=== PATIENT | male | born 1935 | race Caucasian/White ===

== ENCOUNTER 2022-03-20 14:54 | Emergency (ER) | payer OTHER ==
[~2022-03-20] VITALS: Ht 154.9 cm; Wt 76.2 kg
[2022-03-20 15:00] VITALS: BP 183/77
--- NOTE | 2022-03-20 15:10 | NUR ---
melissad called to triage for nihss
--- NOTE | 2022-03-20 15:29 | NUR ---
86YO MALE PT C/O R ARM NUMBING XTODAY. REPORTS SUDDEN ONSET WHILE ATTEMPTING TO TAKE OFF SHIRT -LOSS OF SENSATION. DENIES PREVIOUS S/S, N/V/D, CHEST PAIN, SOB, FEVER OR CHILLS. PT AAOX4, AMB W/ STEADY GAIT. NUZHAT EQUAL MOTOR/STRENGTH. ON SALES ASSISTANTS AND SALESPERSONS HX:DEFIB, CA ALLERGIES: CODEINE
--- NOTE | 2022-03-20 15:53 | NUR ---
Paola loera in [facility] - 03/20/22 at 1614 by PHSEP PT TAKEN TO CT VIA DK
--- NOTE | 2022-03-20 15:53 | NUR ---
PT TAKEN TO CT VIA WHEELCHAIR
--- NOTE | 2022-03-20 16:11 | NUR ---
PT BROUGHT BACK VIA WHEELCHAIR
--- NOTE | 2022-03-20 17:23 | NUR ---
Patient discharged with v/s stable. Written and verbal after care instructions FOR PARESTHESIA given and explained. Patient verbalized understanding. Ambulatory with steady gait. All questions addressed prior to discharge. Advised to follow up with PMD.
== END 2022-03-20 17:23 | disposition home or self-care (01) ==
LOC: MED 14:54
DX: R20.2 Paresthesia of skin (principal); Z88.5 Allergy status to narcotic agent
CPT/HCPCS: 72040; 99283

== ENCOUNTER 2022-03-22 17:03 | Inpatient (IN) | payer OTHER ==
[~2022-03-22] VITALS: Ht 157.5 cm; Wt 75.7 kg
[2022-03-22 17:05] VITALS: BP 166/82
--- NOTE | 2022-03-22 17:15 | NUR ---
Dr. Coleman evaluating patient in triage room.
--- NOTE | 2022-03-22 17:17 | NUR ---
CODE BRAIN INITIATED
--- NOTE | 2022-03-22 17:20 | NUR ---
86 y/o M BIB son c/o 2 episodes of slurred speech and facial droop. Per son, patient seen here 2 days ago for RUE injury s/p taking off shirt and hearing a pop to his right shoulder. Patient seen at [facility] and discharged with negative XRAY findings. Per son, patient woke up this morning at approximately 0730 this morning noted with right sided facial droop, right arm weakness/numbness and slurred speech lasting 2 minutes in duration self-resolved. Son states at 4:50PM today, patient had episode of slurred speech, R facial droop, and RUE weakness/numbness lasting 8-10 minutes. Last seen normal 7AM today. Patient denies chest pain, SOB, vision changes, headache, dizziness, fever, chills. n/v/d, NIHSS 3: RUE ataxia FNF +1; RUE decreased sensation +1; right arm motor drift +1. Pt placed onto manager monitoring. Bed locked in lowest position, side rails x 1. PMH: [place] w/ CABG 2021, left upper chest defibrillator, HTN Meds: losartan, omperazole, Allergies: codeine Sx: CABG 2001; defibrillator placement left upper chest (2001)
--- NOTE | 2022-03-22 17:20 | NUR ---
PT TAKEN TO CT SCAN
--- NOTE | 2022-03-22 17:30 | NUR ---
BACK FROM CT SCAN
--- NOTE | 2022-03-22 17:43 | NUR ---
PER - TELE NEURO INITIATED - CONNECT ID [id number]
[2022-03-22 17:57] LABS: BASOPHILS % (AUTO) 0.3 % (0.0-2.0); EOSINOPHILS # (AUTO) 0.1 K/uL (0-0.4); EOSINOPHILS % (AUTO) 2.2 % (0.0-4.0); HEMATOCRIT 37.8 % (36-52); HEMOGLOBIN 12.4 g/dL (12.0-18.0); LYMPHOCYTES % (AUTO) 16.6 % (20.5-51.1); MEAN CORPUSCULAR HEMOGLOBIN 27 pg (27-31); MEAN CORPUSCULAR HGB CONC 33 g/dL (33-37); MEAN CORPUSCULAR VOLUME 80.9 fL (80-94); MONOCYTES % (AUTO) 15.6 % (1.7-9.3); NEUTROPHILS # (AUTO) 4.1 K/uL (1.8-7.7); NEUTROPHILS % (AUTO) 65.3 % (42.2-75.2); PLATELET COUNT (AUTO) 227 K/uL (140-450); RED BLOOD CELL COUNT(AUTO) 4.67 MIL/uL (4.20-6.10); RED CELL DISTRIBUTION WIDTH 16.6 % (11.6-13.7); WHITE BLOOD COUNT (AUTO) 6.2 K/uL (4.8-10.8)
--- NOTE | 2022-03-22 18:10 | NUR ---
Patient with neuro consultation at this time
[2022-03-22 18:18] LABS: ALBUMIN 3.9 g/dL (3.4-5.0); ANION GAP 11.9 (8-16); ASPARTATE AMINOTRANSFERASE 15 U/L (15-37); CARBON DIOXIDE 26.7 mmol/L (21-32); CHLORIDE 101 mmol/L (98-107); CREATININE 1.3 mg/dL (0.6-1.3); GLUCOSE 105 mg/dL (74-106); POTASSIUM 4.6 mmol/L (3.5-5.1); SODIUM SERUM 135 mmol/L (136-145); TOTAL BILIRUBIN 0.5 mg/dL (0.0-1.0); UREA NITROGEN, BLOOD 27 mg/dL (7-18)
--- NOTE | 2022-03-22 19:15 | NUR ---
Patient to CT by isaac
[2022-03-22 19:21] LABS: APPEARANCE,URINE CLEAR (CLEAR); BILIRUBIN,URINE NEGATIVE (NEGATIVE); BLOOD, URINE TRACE-I (NEGATIVE); COLOR,URINE YELLOW (YELLOW); LEUKOCYTE ESTERASE ,URINE NEGATIVE (NEGATIVE); NITRITE, URINE NEGATIVE (NEGATIVE); UGLUCOSE NEGATIVE (NEGATIVE)
--- NOTE | 2022-03-22 19:21 | NUR ---
Report and transfer of care endorsed to MICHAEL Abdul.
--- NOTE | 2022-03-22 19:30 | NUR ---
ASSUMED CARE OF PT AT THIS TIME. PT IN POSITION OF COMFORT. DENIES ANY PAIN OR NEEDS AT THIS TIME. UPDATED PT AND SON ON POC WITH FULL RETURNED VERBAL UNDERSTANDING. AWAITING ADMISSION
[2022-03-22 19:32] LABS: OTHER CASTS, URINE None Seen /LPF (None Seen); RBC,URINE 0-5 /HPF (0-5); WBC,URINE 0-5 /HPF (0-5)
--- NOTE | 2022-03-22 20:05 | NUR ---
PT MOVED TO ER BED 11
[2022-03-22] MEDS ORDERED: POTASSIUM CHLORIDE 10 MEQ TABER PO PRN (20:10)
[2022-03-22] MEDS ORDERED: ACETAMINOPHEN 325 MG TAB PO PRN (20:10)
[2022-03-22] MEDS ORDERED: KCL 20 MEQ/WATER INJ PREMIX 200 ML IV PRN (20:10)
[2022-03-22] MEDS ORDERED: MAGNESIUM OXIDE 400 MG TAB PO PRN (20:10)
[2022-03-22] MEDS ORDERED: MAG SULF 2000 MG/WATER PREMIX 50 ML IV PRN (20:10)
[2022-03-22] MEDS ORDERED: LOSA100T1 PO (21:16)
[2022-03-22] MEDS ORDERED: ASPI-1749 PO (21:16)
[2022-03-22] MEDS ORDERED: CARV25TA PO (21:16)
[2022-03-22] MEDS ORDERED: OMEP40EC24 PO (21:16)
--- NOTE | 2022-03-23 05:30 | NUR ---
PT MOVED TO ER BED 12
--- NOTE | 2022-03-23 07:15 | NUR ---
REPORT TO ARIANNA RODRIGUEZ
[2022-03-23 07:18] LABS: BASOPHILS % (AUTO) 0.4 % (0.0-2.0); EOSINOPHILS # (AUTO) 0.1 K/uL (0-0.4); EOSINOPHILS % (AUTO) 1.9 % (0.0-4.0); HEMATOCRIT 36.5 % (36-52); HEMOGLOBIN 11.7 g/dL (12.0-18.0); LYMPHOCYTES # (AUTO) 1.1 K/uL (2.0-11.5); LYMPHOCYTES % (AUTO) 16.5 % (20.5-51.1); MEAN CORPUSCULAR HEMOGLOBIN 26 pg (27-31); MEAN CORPUSCULAR HGB CONC 32 g/dL (33-37); MEAN CORPUSCULAR VOLUME 82.3 fL (80-94); MONOCYTES % (AUTO) 14.6 % (1.7-9.3); NEUTROPHILS # (AUTO) 4.4 K/uL (1.8-7.7); NEUTROPHILS % (AUTO) 66.6 % (42.2-75.2); PLATELET COUNT (AUTO) 201 K/uL (140-450); RED BLOOD CELL COUNT(AUTO) 4.43 MIL/uL (4.20-6.10); RED CELL DISTRIBUTION WIDTH 16.2 % (11.6-13.7); WHITE BLOOD COUNT (AUTO) 6.6 K/uL (4.8-10.8)
--- NOTE | 2022-03-23 07:30 | NUR ---
PATIENT PRESENTED TO ED LAST NIGHT WITH FACIAL NUMBNESS AND TINGLING . DENIES N/V/D; SKIN IS PINK/WARM/DRY; AAOX4 WITH EVEN AND STEADY GAIT; LUNGS CLEAR BL; HR EVEN AND REGULAR; PT DENIES ANY FEVER, CP, SOB, OR COUGH AT THIS TIME; PATIENT STATES PAIN OF 0/10 AT THIS TIME; VSS; PATIENT POSITIONED FOR COMFORT; HOB ELEVATED; BEDRAILS UP X2; BED DOWN.
--- NOTE | 2022-03-23 08:45 | NUR ---
Patient will be admitted to care of DR. LEGER. Admited to TELEMETRY. Will go to room 110 A. Belongings list completed. Report to MICHAEL COLON.
[2022-03-23] MEDS: ATORVASTATIN 20 MG TAB PO SCH (09:00)
[2022-03-23] MEDS: ASPIRIN 81 MG TAB.CHEW PO SCH (09:00)
[2022-03-23 09:27] LABS: ALBUMIN 3.6 g/dL (3.4-5.0); ANION GAP 14.4 (8-16); ASPARTATE AMINOTRANSFERASE 26 U/L (15-37); CARBON DIOXIDE 23.7 mmol/L (21-32); CHLORIDE 102 mmol/L (98-107); GLUCOSE 95 mg/dL (74-106); MAGNESIUM 1.8 mg/dL (1.8-2.4); POTASSIUM 4.1 mmol/L (3.5-5.1); SODIUM SERUM 136 mmol/L (136-145); TOTAL BILIRUBIN 0.7 mg/dL (0.0-1.0); UREA NITROGEN, BLOOD 24 mg/dL (7-18)
[2022-03-23 09:33] LABS: CREATININE 1.3 mg/dL (0.6-1.3)
--- NOTE | 2022-03-23 11:10 | NUR ---
DC PLANNING SW ATTEMPTED TO MEET WITH PT AT BEDSIDE TO COMPLETE ASSESSMENT HOWEVER, PT BEING SEEN BY PROVIDER (NE), THEREFORE SW OUTREACHED TO PTS SON, CHAO, TO GATHER COLLATERAL INFORMATION. CHAO REPORTS PT RESIDES IN A SINGLE STORY HOME WITH HIS AND TWO ADULT SONS, AT THE ADDRESS LISTED ON FILE. CHAO IDENTIFIES HIMSELF, AND ALYSHA WARE, PTS , PTS EMERGENCY CONTACTS. CHAO UNSURE IF PT HAS DPOA. PT IS REPORTED TO MEET WITH PCP DR FERGUSON REGULARLY, LAST VISIT 03/22/22. PT IS REPORTED TO BE MEDICATION COMPLIANT AND RECEIVES MEDICATION FROM [facility] [place], WHEN NEEDED. PT IS REPORTED TO BE INDEPENDENT IN ALL ACTIVITIES AND DENIES USE OF DME. CHAO DENIES PT HAS HX OF DIABETES, DIALYSIS, HH, SNF PLACEMENT. PT IS REPORTED TO HAVE ADEQUATE FOOD IN THE HOME AND ADEQUATE FRIEND AND FAMILY SUPPORT. CHAO REPORTS BEING CONCERNED THAT SW CONTACTED HIM TO VERIFY ALL INFORMATION ON FILE. KOKO ENSURED CHAO ALL PATIENTS ARE VISITED BY SW TO GATHER/COMPLETE ASSESSMENTS TO ENSURE ALL INFORMATION ON FILE IS CORRECT, PT HAS SAFE DC PLAN, ENSURE NO BARRIERS TO ADEQUATE MEDICAL CARE, AND TO PROVIDE FAMILIES WITH RESOURCES IF NEEDED. CHAO VERBALIZED UNDERSTANDING. SW INQUIRED ON ADDITIONAL QUESTIONS AND/OR RESOURCES NEEDED, CHAO DECLINED. CHAO REPORTS DC PLAN IS FOR PT TO RETURN HOME WITH FAMILY PROVIDING TRANSPORTATION, WHEN MEDICALLY STABLE. Addendum: 03/23/22 at 1451 by Christofer HAYNES Amended: Links added.
[2022-03-23 12:00] VITALS: BP 137/69
[2022-03-23 16:00] VITALS: BP 118/52
--- NOTE | 2022-03-23 16:30 | NUR ---
P.T. NOTES P.T. EVAL COMPLETED; REFER TO EVAL FOR DETAILS.
[2022-03-23] MEDS: CLOPIDOGREL 75 MG TAB PO SCH (16:50)
--- NOTE | 2022-03-23 19:30 | NUR ---
HAND-OFF REPORT RECEIVED FROM CHARLEEN RN FOR CONTINUITY OF CARE. ENDORSED PACE MAKER TO BE INTERROGATED 03/24/22. [employer] WILL CALL BACK AND POSSIBLY INTERROGATE PACEMAKER OVER THE PHONE. WILL STANDBY FOR PHONE CALL FROM [employer] AND NOTE IT IN NURSING NOTES FOR DR. JONES. PT RECEIVED RESTING QUIETLY IN BED. DENIES PAIN.
[2022-03-23 20:00] VITALS: BP 140/62
[2022-03-24] VITALS: BP 148/63
[2022-03-24 04:00] VITALS: BP 139/72
--- NOTE | 2022-03-24 04:38 | NUR ---
RECEIVED CALL FROM [employer] COMPUTER TRAINING SPECIALIST AIMEE. REPORT GIVEN TO REP CONCERNING MR SMYTH. REP WILL ARRIVE THIS A.M BETWEEN 0830 AND 0900 TO INTERROGATE THE PATIENT'S PACEMAKER.
[2022-03-24 07:17] LABS: BASOPHILS % (AUTO) 0.4 % (0.0-2.0); EOSINOPHILS # (AUTO) 0.1 K/uL (0-0.4); EOSINOPHILS % (AUTO) 2.1 % (0.0-4.0); HEMOGLOBIN 11.5 g/dL (12.0-18.0); MEAN CORPUSCULAR HEMOGLOBIN 27 pg (27-31); MEAN CORPUSCULAR HGB CONC 33 g/dL (33-37); MEAN CORPUSCULAR VOLUME 81.1 fL (80-94); MONOCYTES % (AUTO) 18.7 % (1.7-9.3); NEUTROPHILS # (AUTO) 3.3 K/uL (1.8-7.7); NEUTROPHILS % (AUTO) 59.8 % (42.2-75.2); PLATELET COUNT (AUTO) 196 K/uL (140-450); RED BLOOD CELL COUNT(AUTO) 4.31 MIL/uL (4.20-6.10); RED CELL DISTRIBUTION WIDTH 16.2 % (11.6-13.7); WHITE BLOOD COUNT (AUTO) 5.5 K/uL (4.8-10.8)
--- NOTE | 2022-03-24 07:30 | NUR ---
HAND-OFF REPORT TO RETURNING NURSE CHARLEEN. INFORMED [employer] CALLED AND STATED REP AIMEE WILL ARRIVE BETWEEN 0830 AND 0900 THIS A.M. PT HAD UNEVENTFUL NOC. STATED DIFFICULTY SLEEPING FROM "NOISE". CLOSED PT DOOR AND HE WAS ELATED. THIS A.M PT STATED SLEPT WELL DURING NOC. NO TICED NO SLURRED SPEECH OR FACIAL DROOPING. RELINQUISHED CARE OF PT AT THIS TIME.
[2022-03-24 07:32] LABS: ALBUMIN 3.5 g/dL (3.4-5.0); ANION GAP 12.4 (8-16); ASPARTATE AMINOTRANSFERASE 27 U/L (15-37); CARBON DIOXIDE 27.5 mmol/L (21-32); CHLORIDE 102 mmol/L (98-107); CREATININE 1.3 mg/dL (0.6-1.3); GLUCOSE 100 mg/dL (74-106); MAGNESIUM 1.9 mg/dL (1.8-2.4); POTASSIUM 3.9 mmol/L (3.5-5.1); SODIUM SERUM 138 mmol/L (136-145); TOTAL BILIRUBIN 0.6 mg/dL (0.0-1.0); UREA NITROGEN, BLOOD 24 mg/dL (7-18)
--- NOTE | 2022-03-24 09:06 | NUR ---
PATIENT HAS BEEN SCREENED AND CATEGORIZED LOW NUTRITION RISK. PATIENT WILL BE SEEN WITHIN 7 DAYS OF ADMISSION. 03/29/22 REVIEWED BY CHANTE MUSA RD
[2022-03-24] MEDS: ATORVASTATIN 20 MG TAB PO SCH (09:25)
[2022-03-24] MEDS: ASPIRIN 81 MG TAB.CHEW PO SCH (09:25)
[2022-03-24] MEDS: CLOPIDOGREL 75 MG TAB PO SCH (09:25)
[2022-03-24] MEDS ORDERED: LOSARTAN 50 MG TAB PO SCH (14:25)
[2022-03-24] MEDS ORDERED: ATOR20TA40 PO (16:29)
[2022-03-24] MEDS ORDERED: carvediloL 12.5 MG TAB PO SCH ×2 (16:30→21:00)
[2022-03-24 17:19] VITALS: BP 139/72
--- NOTE | 2022-03-24 17:49 | NUR ---
patient discharged home. stable
== END 2022-03-24 17:45 | disposition home or self-care (01) | DRG 74 ==
LOC: MED 17:03 → MTU 20:14
PROVIDERS: ADMIT Internal Medicine; ATTEND Internal Medicine
DX: M54.12 Radiculopathy, cervical region (principal); G81.91 Hemiplegia, unspecified affecting right dominant side; R47.81 Slurred speech; I25.5 Ischemic cardiomyopathy; R29.810 Facial weakness; I25.10 Atherosclerotic heart disease of native coronary artery without angina pectoris; I10 Essential (primary) hypertension; Z20.822 Contact with and (suspected) exposure to COVID-19; I25.2 Old myocardial infarction; Z95.1 Presence of aortocoronary bypass graft; Z88.5 Allergy status to narcotic agent; Z79.82 Long term (current) use of aspirin
CPT/HCPCS: 36415; 70450; 71045; 72125; 80053; 81001; 83735; 84484; 85025; 86886; 86900; 86901; 87081; 93005; 97112; 97163-GP; 99291; Q0092; Q9967